=== PATIENT | female | born 1975 | race Two or more races ===

== ENCOUNTER 2020-09-22 10:53 | Emergency (ER) | payer SELFPAY ==
[~2020-09-22] VITALS: Ht 149.9 cm; Wt 65.9 kg
[2020-09-22 11:15] VITALS: Ht 149.9 cm; Wt 65.9 kg
[2020-09-22] MEDS ORDERED: ZANAFLEX4 MG PO (13:15)
[2020-09-22] MEDS ORDERED: MEDROL DOSE PACK4 MG PO (13:15)
[2020-09-22 14:10] VITALS: BP 150/71
== END 2020-09-22 14:10 | disposition home or self-care (01) ==
LOC: D.ER 10:53
DX: R20.2 Paresthesia of skin (principal); M50.30 Other cervical disc degeneration, unspecified cervical region